=== PATIENT | male | born 1960 | race Caucasian/White ===

== ENCOUNTER 2017-08-22 03:13 | Emergency (ER) | payer SELFPAY ==
--- NOTE | 2017-08-22 04:05 | ER Document Report ---
ED General - General Chief Complaint: High Blood Pressure Stated Complaint: BLOOD PRESSURE PROBLEMS,RASH Time Seen by Provider: 08/22/17 03:23 Notes: Patient is a 57-year-old male presents emergency department with a chief complaint of refill. Patient states that he has been slow at work so he has been able to afford his medications. Otherwise he denies any headache, vision changes, chest pain. He also admits to difficulty sleeping but he admits to previous sleeping disorders and requiring prescription medications for it. He also admits to rash on his face he has had about a week. States he has been taking Benadryl which helps with itching. Otherwise denies any new detergents, home products. Denies any fevers or chills. TRAVEL OUTSIDE OF THE [place] IN LAST 30 DAYS: No - Related Data Allergies/Adverse Reactions: No Known Allergies Allergy (Verified 08/22/17 03:20) Past Medical History - Social History Smoking Status: Current Every Day Smoker Family History: CAD - Past Medical History Cardiac Medical History: Reports: Hx Hypertension Renal/ Medical History: Denies: Hx Peritoneal Dialysis Past Surgical History: Reports: Hx Appendectomy - Immunizations Hx Diphtheria, Pertussis, Tetanus Vaccination: No Review of Systems - Review of Systems Constitutional: See HPI EENT: No symptoms reported Cardiovascular: No symptoms reported Respiratory: No symptoms reported Gastrointestinal: No symptoms reported Genitourinary: No symptoms reported Skin: See HPI -: Yes All other systems reviewed and negative Physical Exam - Vital signs Vitals: Temp Pulse Resp BP Pulse Ox 98.9 F 95 19 187/110 H 98 08/22/17 03:20 08/22/17 03:20 08/22/17 03:20 08/22/17 03:20 08/22/17 03:20 - Notes Notes: PHYSICAL EXAM GENERAL: Alert, interacts well. HEAD: Normocephalic, atraumatic. EYES: Pupils equal, round, and reactive to light. Extraocular movements intact. ENT: Oral mucosa moist, tongue midline. NECK: Full range of motion. Supple. Trachea midline. LUNGS: Clear to auscultation bilaterally, no wheezes, rales, or rhonchi. No respiratory distress. HEART: Regular rate and rhythm. No murmurs, gallops, or rubs. ABDOMEN: Soft, nondistended, nontender. No guarding, rebound, or rigidity.. Bowel sounds present in all 4 quadrants. EXTREMITIES: Moves all 4 extremities spontaneously. No edema, radial and dorsalis pedis pulses 2/4 bilaterally. No cyanosis. NEUROLOGICAL: Alert and oriented x4. Normal speech. PSYCH: Normal affect, normal mood. SKIN: Warm, dry, normal turgor. Blanching erythema noted around his mason but not on any other part of his face. Course - Re-evaluation Re-evalutation: 08/22/17 04:04 Patient presents with multiple vague complaints that did not appear to be concerning for any acute life-threatening pathology. Vitals are within normal limits at triage and at time of discharge. Physical examination is unremarkable. Patient has tolerated oral intake without difficulty. Patient was not noted to be in distress at any point during their ER visit. At this time, based on the reassuring evaluation, I do not suspect an acute MA, pulmonary embolus, aortic dissection, acute intra-abdominal pathology, stroke, or sepsis.Will discharge with return precautions and follow-up recommendations. Verbal discharge instructions given a the bedside and opportunity for questions given. Medication warnings reviewed. Patient is in agreement with this plan and has verbalized understanding of return precautions and the need for primary care follow-up in the next 24-72 hours. - Vital Signs Vital signs: Temp Pulse Resp BP Pulse Ox 97.8 F 92 20 166/99 H 98 08/22/17 04:10 08/22/17 04:10 08/22/17 04:10 08/22/17 04:10 08/22/17 04:10 Discharge - Discharge Clinical Impression: Rash HTN (hypertension) Qualifiers: Hypertension type: unspecified Qualified Code(s): I10 - Essential (primary) hypertension Condition: Good Disposition: HOME, SELF-CARE Instructions: Antihistamines ([facility]), High Blood Pressure ([facility]), Topical Steroid Cream or Ointment ([facility]) Referrals: [facility] [Provider Group] - 08/23/17
[2017-08-22 04:13] VITALS: BP 166/99
== END 2017-08-22 04:25 | disposition home or self-care (01) ==
LOC: ER 03:13
DX: R21 Rash and other nonspecific skin eruption (principal); I10 Essential (primary) hypertension; F17.200 Nicotine dependence, unspecified, uncomplicated
CPT/HCPCS: 99283